=== PATIENT | male | born 1950 | race Caucasian/White ===

== ENCOUNTER 2020-05-11 09:37 | Outpatient (CLI) | payer MEDICARE, MEDICAID, SELFPAY ==
--- NOTE | ~2020-05-11 | XR_ITS ---
XR chest 2V 05/11/2020 11:02 Indication: Preop for prostate cancer surgery. Procedure: 2 view chest Comparison: No prior studies for comparison. Findings: There is a 5 cm mass in the left upper lobe, concerning for bronchogenic carcinoma. Further evaluation with CT recommended. Heart size normal. Right lung clear. Impression: 1: 5 cm left upper lobe mass, suspicious for bronchogenic carcinoma. Correlation with CT recommended. Reviewed, dictated and finalized at location B. Impression: 1: 5 cm left upper lobe mass, suspicious for bronchogenic carcinoma. Correlatio n with CT recommended.
--- NOTE | 2020-05-11 10:40 | ECG_ITS ---
Measurements Intervals [place] Rate: 72 P: 64 CA: 187 QRS: -6 QRSD: 109 T: 35 QT: 388 QTc: 427 Interpretive Statements SINUS RHYTHM INCOMPLETE RIGHT BUNDLE BRANCH BLOCK BORDERLINE R WAVE PROGRESSION, ANTERIOR LEADS BORDERLINE ECG Electronically Signed On 05-11-2020 13:28:09 CDT by Home Fuller D.O.
[2020-05-11 11:33] LABS: Basophils Absolute Auto 0.1 K/mm3 (0.0-0.1); Basophils Percent Auto 0.9 % (0.2-1.2); Eosinophils Absolute Auto 0.2 K/mm3 (0-0.3); Eosinophils Percent Auto 1.4 % (0-4.4); Hematocrit 48.6 % (42.0-52.0); Hemoglobin 16.4 g/dL (14.0-18.0); Immature Granulocyte Absolute 0.16 K/mm3 (0.00-0.031); Immature Granulocyte Percent A 1.4 % (0-0.5); Lymphocytes Absolute Auto 3.92 K/mm3 (0.9-3.2); Lymphocytes Percent Auto 34.2 % (18.3-44.2); Mean Corpuscular HGB Conc 33.7 g/dl (32-36); Mean Corpuscular Hemoglobin 32.4 pg (26-34); Mean Platelet Volume 9.3 fl (7.4-10.4); Monocytes Absolute Auto 0.9 K/mm3 (0.1-0.6); Monocytes Percent Auto 7.4 % (2.6-8.5); Neutrophils Absolute Auto 6.3 K/mm3 (1.3-6.7); Neutrophils Percent Auto 54.7 % (45.5-73.1); Platelet Count Result 394 k/mm3 (150-375); Red Blood Count 5.06 M/mm3 (4.6-6.20); Red Cell Distribution Width 15.9 % (11.5-14.5); White Blood Count 11.5 K/mm3 (4.5-10.0)
[2020-05-11 11:38] LABS: INR 0.9
[2020-05-11 11:39] LABS: Partial Thromboplastin Time 26.9 SECONDS (22.3-36.8)
[2020-05-11 11:44] LABS: Add Urine Microscopic? YES; Appearance Urine Clear (Clear); Bilirubin Urine Negative (Negative); Blood Urine Negative (Negative); Color Urine Yellow (Yellow); Glucose Urine UA Negative (Negative); Ketones Urine Negative (Negative); Leukocyte Esterase Ur Negative LEU/UL (Negative); Mucus Urine Rare /lpf; Nitrate Urine Negative (Negative); Protein Urine Negative (Negative); Specific Grav Ur 1.021 (1.001-1.035); Squamous Epithelial Cell Urine Rare /hpf (Few); Urobilinogen Urine Negative mg/dL (<2.0); WBC Urine 0-3 /hpf
[2020-05-11 11:51] LABS: Alanine Aminotransferase 28 U/L (4-50); Albumin Level 4.3 g/dL (3.5-5.1); Alkaline Phosphatase 89 U/L (38-126); Aspartate Amino Transferase 33 U/L (17-59); Bilirubin,Total 0.4 mg/dL (0.2-1.3); Blood Urea Nitrogen 15 mg/dL (9-20); Carbon Dioxide 24 mmol/L (22-30); Chloride 105 mmol/L (98-107); Estimated Glomerular Filt Rate > 60; Glucose 85 mg/dL (75-110); Potassium 4.2 mmol/L (3.4-5.0); Sodium 137 mmol/L (137-145)
== END 2020-05-11 09:38 | disposition home or self-care (01) ==
LOC: ANHSURGERY 09:46
PROVIDERS: PCP Internal Medicine; Visit Provider Urology
DX: C61 Malignant neoplasm of prostate (principal); I45.10 Unspecified right bundle-branch block
CPT/HCPCS: 36415; 71046; 80053; 81001; 85025; 85610; 85730; 86850; 86900; 86901; 93005

== ENCOUNTER 2020-05-26 12:15 | Outpatient (CLI) | payer MEDICARE, MEDICAID, SELFPAY ==
--- NOTE | ~2020-05-26 | PE_ITS ---
EXAMINATION: PET skull to mid thigh DATE: 05/26/2020 14:03 INDICATION: Lung mass TECHNIQUE: Blood glucose level was 104 mg/dL. 9.996 mCi of 18-fluorodeoxyglucose (18-FDG) was adminis tered i.v. Low dose computed tomography (CT) images were acquired from the base of the brain to the p roximal thighs for attenuation correction and anatomic localization. Positron emission tomography (PE T) images were acquired in the same distribution beginning 63 minutes after injection. The dose-lengt h product (DLP) was 717.27 mGy-cm. COMPARISON: None FINDINGS: Head/neck: FDG uptake in the oral cavity and vocal cords without suspicious CT correlate is likely ph ysiologic. No abnormal FDG uptake is identified. Chest: There is a 5.8 x 4.9 cm mass of the left lung apex with abnormal FDG uptake with an SUV max of 14.9. There is FDG uptake in the left hilum without definite hilar lymphadenopathy. There is no pleu ral effusion or pneumothorax. The heart size is normal. There is a small pericardial effusion. Abdomen/pelvis/proximal thighs: Physiologic FDG activity is present in the bowel and urinary tract. N o abnormal FDG uptake is identified. The gallbladder is surgically absent. The liver, spleen, pancrea s, and adrenal glands are normal. There is a 2.2 cm cyst of the left kidney lower pole. There is calc ified atherosclerosis of the aorta and many of the other arteries. No pathologically enlarged abdomin al or pelvic lymph nodes are identified. There are bilateral fat-containing inguinal hernias. The ruel endix is normal. Musculoskeletal: There is a focus of FDG uptake seen anteriorly between the C6 and C7 vertebral miracle s without a definite CT correlate. No suspicious uptake is identified. IMPRESSION: 1. Left upper lobe mass with abnormal FDG uptake, likely primary bronchogenic carcinoma. 2. FDG uptake in nonpathologically enlarged left hilar lymph nodes which could reflect metastatic dis ease. Reviewed, dictated and finalized at location B. IMPRESSION: 1. Left upper lobe mass with abnormal FDG uptake, likely primary bronchogenic c arcinoma. 2. FDG uptake in nonpathologically enlarged left hilar lymph nodes which could reflect metastatic disease.
[2020-05-26 12:33] LABS: Glucose Point of Care 104 (65-105)
== END 2020-05-26 12:16 | disposition home or self-care (01) ==
LOC: ANHIMG 12:18
PROVIDERS: PCP Internal Medicine; Visit Provider Internal Medicine
DX: R91.8 Other nonspecific abnormal finding of lung field (principal)
CPT/HCPCS: 78815; A9552

== ENCOUNTER 2020-06-22 00:48 | Outpatient (CLI) | payer MEDICARE, MEDICAID, SELFPAY ==
[2020-06-22 19:34] LABS: SARS-CoV-2 RNA PCR Negative
== END 2020-06-22 00:49 | disposition home or self-care (01) ==
LOC: ANHCOVIDDT 00:48
PROVIDERS: Radiology Diagnostic Radiology; PCP Internal Medicine; Visit Provider Internal Medicine Medical Oncology
DX: Z01.812 Encounter for preprocedural laboratory examination (principal); Z20.828 Contact with and (suspected) exposure to other viral communicable diseases
CPT/HCPCS: 87635; C9803; U0003

== ENCOUNTER 2020-06-24 08:57 | Outpatient (CLI) | payer MEDICARE, MEDICAID, SELFPAY ==
[2020-06-19 08:51] VITALS: BMI 27.1
[2020-06-24] VITALS (10 sets, daily range): BP systolic 131–156; BP diastolic 56–99; PULSE 57–97; RESP 16–21; O2SAT 95–100
--- NOTE | ~2020-06-24 | XR_ITS ---
EXAMINATION: XR chest 1V portable DATE: 06/24/2020 13:32 INDICATION: Status post percutaneous biopsy of a left upper lobe mass. TECHNIQUE: frontal view of the chest was obtained. COMPARISON: Chest radiograph dated 06/24/2020 at 11:01 AM and PET/CT dated 05/26/2020 FINDINGS: Lucency along the medial side of a left upper lobe mass which on prior PET study corresponds to a per ipheral bleb. Unchanged linear discoid atelectasis/scarring the bilateral lower lung zones. No pneumo thorax, pleural effusion or new airspace opacities. The cardiomediastinal silhouette is normal. IMPRESSION: 1. No pneumothorax or pleural effusion post percutaneous biopsy of a left upper lobe mass which is co ncerning for malignancy. Reviewed, dictated and finalized at location A. IMPRESSION: 1. No pneumothorax or pleural effusion post percutaneous biopsy of a left upper lobe mass which is concerning for malignancy.
--- NOTE | ~2020-06-24 | CT_ITS ---
EXAMINATION: CT biopsy lung DATE: 06/24/2020 12:17 INDICATION: Left lung mass. Prostate cancer. TECHNIQUE: The procedure including the risks and benefits was discussed with the patient. Risks discu ssed included infection, approximately 1/20 risk of symptomatic hemorrhage beyond mild hemoptysis, ap proximately 1/3 risk of pneumothorax, and approximately 1/10 risk of pneumothorax severe enough to wa rrant chest tube placement. The patient understood the risks and agreed to proceed. The patient was p laced supine. The skin overlying the clavicular anterior left chest was prepped and draped in steril e fashion. Anesthetic was administered with 1% lidocaine subcutaneously. A 19 gauge outer needle wa s advanced under CT guidance to the lesion of interest. A 20 gauge core biopsy needle was then used t o obtain 4 core biopsy specimens. The needle was removed and the entry site was cleaned and dressed. There were no immediate complications. The dose-length product was 117.25 mGy-cm. FINDINGS: CT images demonstrate the outer needle tip adjacent to 5 cm mass at the apical segment of t he left upper lobe. IMPRESSION: 1. Successful CT-guided biopsy of a 5.0 cm left apical mass. Reviewed, dictated and finalized at location A.
--- NOTE | ~2020-06-24 | XR_ITS ---
EXAMINATION: XR chest 1V DATE: 06/24/2020 12:22 INDICATION: Left lung mass post percutaneous biopsy TECHNIQUE: frontal view of the chest was obtained. COMPARISON: Chest radiograph dated 05/11/2020 FINDINGS: No pneumothorax or pleural effusion. Unchanged left upper lobe mass concerning for malignancy. Chroni c discoid atelectasis/scarring in the bilateral lower lobes. The cardiomediastinal silhouette is norm al. IMPRESSION: 1. No pneumothorax or other acute cardiopulmonary disease post percutaneous biopsy of a left upper lo be mass concerning for malignancy. Reviewed, dictated and finalized at location A. IMPRESSION: 1. No pneumothorax or other acute cardiopulmonary disease post percutaneous bio psy of a left upper lobe mass concerning for malignancy.
--- NOTE | ~2020-06-24 | XR_ITS ---
EXAMINATION: XR chest 1V portable DATE: 06/24/2020 15:32 INDICATION: Status post percutaneous biopsy of a left upper lobe mass TECHNIQUE: frontal view of the chest was obtained. COMPARISON: Chest radiograph dated 06/24/2020 at 1:26 PM FINDINGS: Left upper lobe mass. Atelectasis/scarring at the bilateral lower lung zones. No pneumothorax or pleu ral effusion. The cardiomediastinal silhouette is normal. IMPRESSION: 1. No pneumothorax or other acute cardiopulmonary disease post biopsy of a right upper lobe mass whic h is concerning for malignancy. Reviewed, dictated and finalized at location A. IMPRESSION: 1. No pneumothorax or other acute cardiopulmonary disease post biopsy of a righ t upper lobe mass which is concerning for malignancy.
[2020-06-24 10:43] LABS: Mean Platelet Volume 9.3 fl (7.4-10.4); Platelet Count Result 344 k/mm3 (150-375)
[2020-06-24 10:53] LABS: INR 0.9; Prothrombin Time 12.2 Seconds (11.1-14.7)
--- NOTE | 2020-06-24 13:45 | SUR.PHASEII ---
PORTABLE XRAY DONE AT 1315.
--- NOTE | 2020-06-24 15:24 | SUR.PHASEII ---
PORTABLE XRAY HERE FOR CXR.
--- NOTE | 2020-06-24 16:04 | SUR.PHASEII ---
1540 DR. VORA HERE TO SPEAK TO PATIENT. PIV REMOVED FROM LEFT FOREARM; SITE WNL. RIDE EN ROUTE. PT DRESSED, VOIDED X 1; TOLERATED JUICE.
== END 2020-06-24 16:23 | disposition home or self-care (01) ==
LOC: ANHIMG 08:58
PROVIDERS: Radiology Diagnostic Radiology; PCP Internal Medicine; Visit Provider Internal Medicine Medical Oncology
DX: R91.8 Other nonspecific abnormal finding of lung field (principal); C61 Malignant neoplasm of prostate; C34.91 Malignant neoplasm of unspecified part of right bronchus or lung
CPT/HCPCS: 32405; 36415; 71045; 77012; 81210; 81235; 81275; 81276; 85049; 85610; 88271; 88274; 88305; 88342; 88360; 88381

== ENCOUNTER 2020-06-25 12:38 | Outpatient (CLI) | payer MEDICARE, MEDICAID, SELFPAY ==
--- NOTE | 2020-07-01 16:54 | WPDPFTINT ---
PFT Interpretation PFT Interpretation: DOS: 06/25/2020 REQUESTING: Dr. Buzz Garcia REASON FOR TESTING: lung mass; history of asbestosis PULMONARY FUNCTION TESTS Results are not reliable as the patient could not sustain exhalation for 6 seconds on 3 attempts, says he had a lung biopsy the day prior to the test. Spirometry: FEV1 is 81%, normal, 2.55 L. FVC is 68%, mildly decreased. Slow vital capacity is 91%, higher than FVC indicating dynamic air trapping. The FEV1% calculated with slow vital capacity is decreased at 60%. No bronchodilator was given. Lung volumes: TLC 139% mild hyperinflation. RV 204%, severe air trapping. Airway resistance 136% mildly increased. Diffusion: DLCO is 75%, mildly decreased. Flow volume loop: Could only produce 2 flow volume loops. Early closure of the inspiratory limb. IMPRESSION: Results are not reliable due to patient factors including lung biopsy the day before the testing. Mild obstructive ventilatory impairment, mild hyperinflation, severe air trapping, mild diffusion impairment. No bronchodilator was given. This test result does not suggest asbestosis which would be expected to shows restriction and lower diffusion. Lola Jacob MD
== END 2020-06-25 12:39 | disposition home or self-care (01) ==
LOC: ANHPFT 12:40
PROVIDERS: PCP Internal Medicine; Visit Provider Internal Medicine Medical Oncology
DX: R91.8 Other nonspecific abnormal finding of lung field (principal)
CPT/HCPCS: 94375; 94726; 94729

== ENCOUNTER 2022-03-11 18:19 | Observation (INO) | payer MEDICARE, MEDICAID, SELFPAY ==
[2022-03-08 13:27] VITALS: BMI 27.1
--- NOTE | 2022-03-08 13:53 | PC.NURSE ---
Report to the Outpatient Waiting Room, entrance under the green pavilion located off [facility], at time _12:00PM on date __03/10/22 . OR Time: ___2:00PM . - You and your visitor will be asked a series of questions to screen for COVID 19 for your protection. - Only one visitor is allowed at this time. - The patient visitor is requested to leave or wait in car when not with patient. - A mask is required within the hospital. Patients may have clear liquids (water, carbonated beverages, clear teas, apple juice) until 3 hours prior to surgery with a maximum of 20 ounces. - No food from midnight until time of surgery - Infants may have breast milk until 4 hours before surgery, infant formula 6 hours prior to surgery. - Children will be allowed to drink immediately following surgery. If applicable, please bring a bottle or sippy cup to assist with drinking. Juice, water, soda, and popsicles are readily available. For infants on formula, please bring formula the day of surgery. Pacifiers are allowed. Take the following medications with a SIP of water the morning of surgery: _BUPROPION, LEVOTHYROXINE, LORAZEPAM AND HYDROCODONE NEEDED Medications to discontinue per physician ____HOLDING ASPIRIN STARTING TODAY 03/08/22 Date to take last dose Please no make-up, nail maori, hairspray, perfume, deodorant, or body powder the day of surgery. No jewelry (including any body piercings) or valuables the day of surgery, leave them at home. Please take a shower or bath the night before, or the morning of, surgery with an antibacterial soap. Wear comfortable, loose fitting clothing. Children are encouraged to wear pajamas. - Jewelry must be removed prior to entering the operating room. Rings and piercings that are not removed may be cut off. - The hospital will not accept responsibility for valuables. - Please leave all valuables, including medications, at home the day of surgery. If you are going home after surgery, a licensed class b driver must drive you home. - NO public transportation without another adult. - We recommend that an adult stay with you for 24 hours following discharge. - We also recommend that you do not drive, make important decision, drink alcoholic beverages, or take any drugs that were not prescribed by your health care provider for at least 24 hours after your discharge time. For Pediatric surgeries, we recommend two adults accompany the child home (only one inside the building at this time). Follow any additional instructions given to you from your surgeon. If you or anyone in your household have experienced Covid symptoms in the past week, please notify your surgeon or the nurse liaison at the phone number below for possible testing. Telephone instructions given to ___PATIENT and asked if any additional questions and then verbalized understanding. Patient advised to call surgeon office or pre surgery nurse liaison [phone] if any additional questions.
[2022-03-10] VITALS (17 sets, daily range): BP systolic 117–157; BP diastolic 49–83; PULSE 78–105; RESP 14–20; TEMP 36.2–37.1; O2SAT 92–100
--- NOTE | 2022-03-10 06:04 | ECG_ITS ---
Measurements Intervals [place] Rate: 92 P: 79 [place]: 180 QRS: 18 QRSD: 101 T: 56 QT: 368 QTc: 457 Interpretive Statements SINUS RHYTHM DELAYED PRECORDIAL R/S TRANSITION BASELINE WANDER- I, III, AVR, AVL, V2 BORDERLINE ECG Electronically Signed On 03-10-2022 12:40:49 CDT by Home Fuller D.O.
--- NOTE | 2022-03-10 06:39 | WPDHPUPDATE1 ---
History and Physical Update Update Date/Time: 03/10/22 06:39 History and Physical has been reviewed, including an updated exam of the patient. There are NO changes in the patient's condition. Risks, benefits, and alternatives have been discussed and questions answered. Patient agrees to proceed with procedure.
--- NOTE | 2022-03-10 12:08 | WPDANESEPPF ---
Anes - Initial Pre Proc Eval Procedure: Operation Date: 03/10/22 14:00 Proposed Procedures p Cystoscopy, Laser Lithotripsy of Large Bladder Calculus, Possible Open Bladder, - Richy Manjarrez MD s Possible Trans Urethral Resection Bladder Tumor - Richy Manjarrez MD Date/Time: 03/10/22 12:08 Surgeon: Richy Manjarrez MD Pre Op Diagnosis: prostate CA, bladder mass/calculus Patient Data Age: 71 Gender: M Height: 1.83 m Weight: 91 kg Allergies Allergy/AdvReac Type Severity Reaction Status Date / Time No Known Allergies Allergy Verified 03/08/22 13:22 Home Medications Medication Instructions Recorded Confirmed Type aspirin [Adult Low Dose Aspirin] 81 mg PO DAILY 05/11/20 03/08/22 History bupropion HCl 300 mg PO QAM 05/11/20 03/08/22 History doxepin 100 mg PO HS 05/11/20 03/08/22 History levothyroxine 25 mcg PO QAM 05/11/20 03/08/22 History lorazepam 1 mg PO BID PRN 05/11/20 03/08/22 History lovastatin 40 mg PO QPM 05/11/20 03/08/22 History melatonin 5 mg PO HS PRN 05/11/20 03/08/22 History meloxicam 15 mg PO DAILY 05/11/20 03/08/22 History olanzapine 20 mg PO QPM 05/11/20 03/08/22 History omeprazole 40 mg PO DAILY 05/11/20 03/08/22 History hydrocodone-acetaminophen 1 tablet PO Q3-4H PRN 03/08/22 03/08/22 History trazodone 50 mg PO HS 03/08/22 03/08/22 History Patient hx anesthesia problems: none Family hx anesthesia problems: none Results Review: All pre-operative results and documents have been reviewed as part of the pre-operative evaluation. [facility] Past Medical History Medical History Anxiety GERD (gastroesophageal reflux disease) Hx of migraines Hyperlipidemia Hypothyroid Lung cancer Prostate cancer Social History Social History Smoking packs per day: 1 Smoking cigarettes per day: 20.0 Years smoked: 50 Smoking pack-years: 50.00 Smoking status: Current every day smoker Tobacco type: cigars Additional smoking assessment comments: SMOKES 3-4 CIGAR/DAY Alcohol intake: former Alcohol use details: DRANK HEAVILY IN THE 1970'S Substance use: current Substance use type: marijuana Last use: DAILY X 50 YRS Living arrangements: alone Additional living arrangements comments: LIVES AT [facility] [employer] [employer] [phone] Spiritual care concerns: No Anes - Eval Final PreProcedure Day of Procedure 03/10/22 12:08 Patient weight: thin Heart: regular rate and rhythm Lungs: decreased breath sounds Airway: Mallampati scale class II Neurological: other (alert) Last oral intake: >/= 8 hours ASA classification: IV Emergent: no Anesthetic plan: proceed Anesthesia type and monitoring: general LMA and standard monitoring Results Review: All pre-operative results and documents have been reviewed as part of the pre-operative evaluation. Informed Consent: The patient's anesthetic plan and its attendant risks and benefits were discussed with the patient/family/POA. Questions were solicited and answers provided to the satisfaction of the patient/family/POA.
[2022-03-10] MEDS: LACTATED RINGERS 1,000 ML 30 ML IV CONT ×2 (12:15→15:33)
[2022-03-10] MEDS: ceFAZolin 2 GM/D5W 50 ML 2 GM/50 ML BAG IVPB (12:49)
[2022-03-10] MEDS: LIDOCAINE HCL 2% GEL UROJET 10 ML PKG MUCOUS MEM (13:04)
--- NOTE | 2022-03-10 15:52 | P.OP_ITS ---
Procedure Note - Detailed Date of Procedure 03/10/22 Pre-op Diagnosis Large bladder mass vs. neoplasm Post-op Diagnosis Other (Large, probable bladder neoplasm) Procedure Performed Cysto/clot evacuation, TURBT (large, >10cm) Surgeon Richy Manjarrez MD Anesthesia General Description of Procedure Patient is brought to the op suite was prepped draped in routine sterile fashion while in dorsal lithotomy position after the uneventful induction of a general anesthetic. Cystoscopy is undertaken with a 19 F rigid cystoscope followed by a 26 F continuous irrigation resectoscope. He has a massive growth in his bladder that is essentially filling the whole bladder lumen. in the office I could tell if this was a large calculus or a soft tissue neoplasm with some calcifications. On inspection in the OR today, it seems to cut with a loop electrode, consistent with a soft tissue neoplasm. With persistence I was able to resect this in its entirety. It appeared to arise in the right posterior lateral bladder wall. Somewhat surprisingly was able to identify and preserve each ureteral orifice. I sent tissue both from the main body of the mass as well as the base. We resected 244 g of tissue. The base was cauterized with the rollerball electrode a 24 F hematuria catheter was placed to continuous ir rigation. Blood loss was 75cc. Drains Yes Packing No Pathology Yes Complications No immediate complications Condition Stable Disposition PACU
[2022-03-10] MEDS: fentaNYL CITRATE INJ (*CRX) 100 MCG/2 ML VIAL 25 MCG IV PUSH ×4 (15:59→16:12)
[2022-03-10 16:41] LABS: Hemoglobin 14.1 g/dL (14.0-18.0)
[2022-03-10] MEDS: HYDROmorphone HCL INJ (*CRX) 1 MG/ML SYR 0.25 MG IV PUSH ×4 (16:52→17:10)
[2022-03-10 17:02] LABS: Anion Gap 5 mmol/L (8-16); Blood Urea Nitrogen 24 mg/dL (9-20); Calcium 8.5 mg/dL (8.4-10.2); Carbon Dioxide 27 mmol/L (22-30); Chloride 105 mmol/L (98-107); Estimated CRCL calculation 56 ml/min; Estimated Glomerular Filt Rate > 60; Glucose 145 mg/dL (65-110); Potassium 4.2 mmol/L (3.4-5.0); Sodium 137 mmol/L (137-145)
--- NOTE | 2022-03-10 17:25 | SUR.PHASEI ---
PATIENT EDUCATED ON PAIN CONTROL AND OPTIONS. RATING PAIN 10/10. RESTING, APPEARS COMFORTABLE, FLACC 0.
[2022-03-10] MEDS: DEXTROSE 5%/LACTATED RINGERS 1,000 ML 125 ML IV CONT (18:30)
[2022-03-10] MEDS: HYDROcodone/acetaminophen (*CRX) 5-325 MG TABLET 1 TAB PO (18:37)
[2022-03-10] MEDS: LORazepam (*CRX) 1 MG TABLET PO (18:38)
[2022-03-10] MEDS: DOCUSATE SODIUM 100 MG CAPSULE PO (18:55)
[2022-03-10] MEDS: LOVASTATIN 20 MG TABLET 40 MG PO (18:55)
[2022-03-10] MEDS: DOXEPIN HCL 25 MG CAPSULE 100 MG PO (20:07)
[2022-03-10] MEDS: OLANZapine 5 MG TABLET 20 MG PO (20:07)
[2022-03-10] MEDS: traZODone HCL 50 MG TABLET PO (20:07)
--- NOTE | ~2022-03-11 | XR_ITS ---
EXAMINATION: XR fluoroscopy no charge DATE: 03/10/2022 16:49 INDICATION: Bladder tumor. TECHNIQUE: 2 intraoperative fluoroscopic views of the abdomen and pelvis were obtained. I was not pre sent. Fluoroscopy time was 2 seconds. COMPARISON: None. FINDINGS: There are no dilated loops of bowel. There is a phlebolith in right pelvis. IMPRESSION: 1. No urolithiasis. Reviewed, dictated and finalized at location A. IMPRESSION: 1. No urolithiasis.
[2022-03-11] MEDS: HYDROcodone/acetaminophen (*CRX) 5-325 MG TABLET 1 TAB PO ×5 (00:21→18:08)
--- NOTE | 2022-03-11 00:35 | PC.NURSE ---
0030 PT SET OFF BED ALARM JUMPING OUT OF BED. ENTERED ROOM TO TURN OFF ALARM AND CHECK ON PT AND NOTICED HIS GOWN WAS WET. ASSESSED F[place] AND NOTICED PT HAD PULLED OUT TUBE CONNECTING TO THE CBI FLUIDS. STOPPED CBI FLUIDS AND REATTACHED TUBING. [address] WAY F[place] IS BACK FLOWING NORMALLY AND URINE IS PINK IN COLOR.
[2022-03-11] MEDS: DEXTROSE 5%/LACTATED RINGERS 1,000 ML 125 ML IV CONT (02:38)
[2022-03-11 03:12] VITALS: BP 111/55; PULSE 86; RESP 20; TEMP 37.1; O2SAT 99
[2022-03-11 05:30] LABS: Hematocrit 35.2 % (42.0-52.0); Hemoglobin 11.7 g/dL (14.0-18.0); Mean Corpuscular HGB Conc 33.2 g/dl (32-36); Mean Corpuscular Hemoglobin 32.2 pg (26-34); Mean Platelet Volume 9.4 fl (7.4-10.4); Platelet Count Result 324 k/mm3 (150-375); Red Blood Count 3.63 M/mm3 (4.6-6.20); Red Cell Distribution Width 13.8 % (11.5-14.5); White Blood Count 17.7 K/mm3 (4.5-10.0)
[2022-03-11] MEDS: LEVOTHYROXINE SODIUM 25 MCG TABLET PO (05:43)
[2022-03-11 05:52] LABS: Anion Gap 4 mmol/L (8-16); Blood Urea Nitrogen 17 mg/dL (9-20); Carbon Dioxide 27 mmol/L (22-30); Chloride 105 mmol/L (98-107); Estimated CRCL calculation 61 ml/min; Estimated Glomerular Filt Rate > 60; Glucose 126 mg/dL (65-110); Potassium 3.8 mmol/L (3.4-5.0); Sodium 136 mmol/L (137-145)
--- NOTE | 2022-03-11 07:01 | WPDUROPN2 ---
Progress Note: A&P Assessment and Plan (1) Cancer of overlapping sites of bladder: Code(s): C67.8 - Malignant neoplasm of overlapping sites of bladder Status: Acute Assessment and Plan: Tolerated large TURBT well. Urine clear on slow CBI. Will stop CBI today. Anticipate discharge later today were tomorrow with indwelling catheter over the weekend. Subjective Subjective Date/Time Seen: 03/11/22 07:01 Comfortable, no complaints Review of Systems Cardiovascular: Cardiovascular: Denies chest pain, Denies lightheadedness, Denies palpitations and Denies dyspnea Respiratory: Respiratory: Denies dyspnea Gastrointestinal: Gastrointestinal: Denies diarrhea, Denies nausea and Denies vomiting Genitourinary: Genitourinary: Denies hematuria and Denies dysuria Endocrine: Endocrine: Denies palpitations Exam Const: General: no acute distress Resp: Effort & Inspection: normal respiratory effort GI: Inspection: non-distended GI Palp: No abdominal tenderness and No Guarding due to palpation present (GI) Auscultation: normal bowel sounds Objective Data Vital Signs Vital Signs: Vital Signs - 24 hr 03/10/22 12:15 03/10/22 15:33 03/10/22 15:45 Temperature 97.4 F L 97.3 F L Pulse Rate 105 H 87 80 Respiratory Rate 18 14 20 Blood Pressure 117/73 155/82 H 144/71 H Pulse Oximetry 97 97 97 03/10/22 16:00 03/10/22 16:15 03/10/22 16:30 Temperature Pulse Rate 80 81 88 Respiratory Rate 18 18 18 Blood Pressure 131/67 131/67 136/56 L Pulse Oximetry 100 98 93 03/10/22 16:45 03/10/22 17:00 03/10/22 17:15 Temperature Pulse Rate 90 93 92 Respiratory Rate 18 20 20 Blood Pressure 157/60 H 128/49 L 144/70 H Pulse Oximetry 95 92 93 03/10/22 17:25 03/10/22 17:30 03/10/22 17:45 Temperature 98.7 F 98.7 F Pulse Rate 92 87 86 Respiratory Rate 20 20 20 Blood Pressure 138/75 136/83 139/73 Pulse Oximetry 97 100 100 03/10/22 17:50 03/10/22 18:15 03/10/22 20:47 Temperature 98.6 F Pulse Rate 84 84 Respiratory Rate 20 20 Blood Pressure 138/70 Pulse Oximetry 99 100 100 03/10/22 21:54 03/10/22 23:12 Temperature 97.2 F L Pulse Rate 84 78 Respiratory Rate 20 20 Blood Pressure 121/54 L Pulse Oximetry 100 99 Intake/Output Intake/Output: Intake & Output 03/08/22 03/09/22 03/10/22 03/11/22 23:59 23:59 23:59 23:59 Intake Total 675 1000 Output Total 3900 2500 Balance -3225 -1500 Meds/Results Medications: Active Medications Generic Name Dose Route Start Last Admin Trade Name Freq PRN Reason Stop Dose Admin Hydrocodone Bitart/Acetaminophen 1 tab 03/10/22 17:27 03/11/22 06:02 Hydrocodone/Acetaminophen (*Crx) 5-325 Mg Tablet PO 1 tab Q4H PRN Administration Pain Rated 1-6 Bupropion HCl 300 mg 03/11/22 09:00 Bupropion Hcl Xl (24 Hr) 150 Mg Tabcr PO QAM DEANA Cephalexin HCl 500 mg 03/11/22 09:00 Cephalexin 500 Mg Capsule PO QID DEANA Docusate Sodium 100 mg 03/10/22 17:27 03/10/22 18:55 Docusate Sodium 100 Mg Capsule PO 100 mg BID DEANA Administration Doxepin HCl 100 mg 03/10/22 21:00 03/10/22 20:07 Doxepin Hcl 25 Mg Capsule PO 04/09/22 20:59 100 mg HS DEANA Administration Hyoscyamine 0.125 mg 03/10/22 17:27 Hyoscyamine Sulfate 0.125 Mg Tablet SUBLINGUAL Q6H PRN Bladder Spasm Dextrose/Lactated Ringer's 1,000 mls @ 125 mls/hr 03/10/22 17:27 03/11/22 02:38 Dextrose 5%/Lactated Ringers IV CONT 125 mls/hr .Q8H DEANA Administration Levothyroxine Sodium 25 mcg 03/11/22 06:30 03/11/22 05:43 Levothyroxine Sodium 25 Mcg Tablet PO 25 mcg DAILY@0630 DEANA Administration Lorazepam 1 mg 03/10/22 17:27 03/10/22 18:38 Lorazepam (*Crx) 1 Mg Tablet PO 1 mg BID PRN Administration Anxiety Lovastatin 40 mg 03/10/22 18:00 03/10/22 18:55 Lovastatin 20 Mg Tablet PO 40 mg QPM DEANA Administration Melatonin 5 mg 03/10/22 17:27 Melatonin 5 Mg Tablet PO HS PRN
[2022-03-11 07:12] VITALS: BP 118/52; PULSE 85; RESP 21; TEMP 36.1; O2SAT 100
[2022-03-11] MEDS: MORPHINE SULFATE (*CRX) 2 MG/ML INJ IV PUSH ×4 (07:39→20:01)
[2022-03-11] MEDS: buPROPion HCL XL (24 HR) 150 MG TABCR 300 MG PO (08:21)
[2022-03-11] MEDS: PANTOPRAZOLE 40 MG TABLET PO ×2 (08:21→20:00)
[2022-03-11] MEDS: CEPHALEXIN 500 MG CAPSULE PO ×4 (08:21→19:59)
[2022-03-11] MEDS: DOCUSATE SODIUM 100 MG CAPSULE PO ×2 (08:21→16:06)
--- NOTE | 2022-03-11 09:25 | WPDANESPN ---
Anes - Prog Note Post-Op Date/Time: 03/11/22 09:25 Cardiovascular status: normal Respiratory status: normal Airway patency: baseline Mental status: baseline Post-Op hydration status: normal Vital Signs: Last Vital Signs Temp 36.1 C L 03/11/22 07:12 Pulse 85 03/11/22 07:12 Resp 21 H 03/11/22 07:12 BP 118/52 L 03/11/22 07:12 Pulse Ox 100 03/11/22 07:12 Pain Score (VAS): 0 I/O: Intake & Output 03/10/22 03/11/22 03/11/22 23:59 07:59 15:59 Intake Total 625 1000 110 Output Total 3900 2500 Balance -3275 -1500 110 Laboratory Tests 03/11/22 04:59 03/11/22 04:59 03/10/22 03/10/22 03/11/22 16:31 16:31 04:59 WBC 17.7 H RBC 3.63 L Hgb 14.1 11.7 L Hct 43.0 35.2 L MCV 97.0 MCH 32.2 MCHC 33.2 RDW 13.8 Plt Count 324 MPV 9.4 Sodium 137 Potassium 4.2 Chloride 105 Carbon Dioxide 27 Anion Gap 5 L BUN 24 H Creatinine 1.10 Estim Creat Clear Calc 56 Estimated GFR > 60 Glucose 145 H Calcium 8.5 03/11/22 04:59 WBC RBC Hgb Hct MCV MCH MCHC RDW Plt Count MPV Sodium 136 L Potassium 3.8 Chloride 105 Carbon Dioxide 27 Anion Gap 4 L BUN 17 Creatinine 1.00 Estim Creat Clear Calc 61 Estimated GFR > 60 Glucose 126 H Calcium 8.0 L Post-procedural complaints: none Patient Feedback: Patient satisfied with anesthetic care.
[2022-03-11 09:45] VITALS: BMI 21.2
[2022-03-11 10:10] VITALS: BP 106/59; PULSE 85; RESP 18; TEMP 37.1; O2SAT 98
[2022-03-11 15:05] VITALS: BP 100/50; PULSE 83; RESP 18; TEMP 37.2; O2SAT 97
[2022-03-11] MEDS: LOVASTATIN 20 MG TABLET 40 MG PO (18:09)
[2022-03-11] MEDS: OLANZapine 5 MG TABLET 20 MG PO (18:10)
[2022-03-11 18:20] VITALS: BP 96/48; PULSE 88; RESP 14; TEMP 36.4; O2SAT 93
[2022-03-11] MEDS: DOXEPIN HCL 25 MG CAPSULE 100 MG PO (19:59)
[2022-03-11 20:00] VITALS: BP 97/58; PULSE 79; RESP 18; TEMP 36.2; O2SAT 96
[2022-03-11] MEDS: LORazepam (*CRX) 1 MG TABLET PO (20:00)
[2022-03-11] MEDS: MELATONIN 5 MG TABLET PO (20:01)
[2022-03-11] MEDS: traZODone HCL 50 MG TABLET PO (20:01)
[2022-03-12] VITALS: BP 103/74; PULSE 91; RESP 18; TEMP 36.2; O2SAT 96
[2022-03-12] MEDS: MORPHINE SULFATE (*CRX) 2 MG/ML INJ IV PUSH ×2 (01:56→04:14)
[2022-03-12] MEDS: HYDROcodone/acetaminophen (*CRX) 5-325 MG TABLET 1 TAB PO ×3 (02:57→12:03)
--- NOTE | 2022-03-12 03:02 | PC.NURSE ---
Pt is being verbally abusive keeps reattempting to get another IV shot. Nurse told him she give him a pill. Stated to bring the fucking pill. Ask male nurse to assist me. Attempted to get male nurse to give him a shot. Reminded him he already had shot. Started arguing that you gave me a shot I thought it was supposed to go in the vein. This is after multiple times pt repeatedly asked different nurse to give him pain shots. It had been an hour since pt received his shot.
--- NOTE | 2022-03-12 04:10 | PC.NURSE ---
Called to room pt asking for pain shot
[2022-03-12 06:00] VITALS: BP 105/58; PULSE 77; RESP 20; TEMP 37.2; O2SAT 96
[2022-03-12 06:45] LABS: Hematocrit 33.3 % (42.0-52.0); Hemoglobin 11.1 g/dL (14.0-18.0); Mean Corpuscular HGB Conc 33.3 g/dl (32-36); Mean Corpuscular Hemoglobin 32.1 pg (26-34); Mean Corpuscular Volume 96.2 fl (80-100); Mean Platelet Volume 9.3 fl (7.4-10.4); Platelet Count Result 328 k/mm3 (150-375); Red Blood Count 3.46 M/mm3 (4.6-6.20)
[2022-03-12] MEDS: LEVOTHYROXINE SODIUM 25 MCG TABLET PO (06:48)
[2022-03-12 07:04] LABS: Anion Gap 4 mmol/L (8-16); Blood Urea Nitrogen 13 mg/dL (9-20); Calcium 8.2 mg/dL (8.4-10.2); Carbon Dioxide 28 mmol/L (22-30); Chloride 105 mmol/L (98-107); Estimated CRCL calculation 75 ml/min; Estimated Glomerular Filt Rate > 60; Glucose 102 mg/dL (65-110); Potassium 3.4 mmol/L (3.4-5.0); Sodium 137 mmol/L (137-145)
[2022-03-12] MEDS: PANTOPRAZOLE 40 MG TABLET PO (09:34)
[2022-03-12] MEDS: buPROPion HCL XL (24 HR) 150 MG TABCR 300 MG PO (09:34)
[2022-03-12] MEDS: DOCUSATE SODIUM 100 MG CAPSULE PO (09:34)
[2022-03-12] MEDS: CEPHALEXIN 500 MG CAPSULE PO ×2 (09:34→12:08)
[2022-03-12 10:26] VITALS: BP 119/61; PULSE 82; RESP 20; TEMP 36.3; O2SAT 94
[2022-03-12 14:20] VITALS: BP 105/57; PULSE 70; RESP 16; TEMP 36; O2SAT 97
--- NOTE | 2022-03-12 14:25 | WPDUROPN2 ---
Progress Note: A&P Assessment and Plan (1) Cancer of overlapping sites of bladder: Code(s): C67.8 - Malignant neoplasm of overlapping sites of bladder Status: Acute Assessment and Plan: Status post transurethral resection of bladder tumor (2) Retention of urine, unspecified: Code(s): R33.9 - Retention of urine, unspecified Status: Acute Assessment and Plan: Home with Pratt catheter. Flomax sent to pharmacy Subjective Subjective Date/Time Seen: 03/12/22 14:25 He subjectively states he has discomfort, but he appears comfortable to me. He is unable to empty his bladder.. He has voided a small amount of blood-tinged urine. There is 500 cc in his bladder on bladder scan. Exam Narrative: Poor dentition Appears comfortable Abdomen soft. No rebound or guarding Objective Data Vital Signs Vital Signs: Vital Signs - 24 hr 03/11/22 15:05 03/11/22 18:20 03/11/22 20:00 Temperature 99 F 97.6 F 97.1 F L Pulse Rate 83 88 79 Respiratory Rate 18 14 18 Blood Pressure 100/50 L 96/48 L 97/58 L Pulse Oximetry 97 93 96 03/12/22 00:00 03/12/22 06:00 03/12/22 10:26 Temperature 97.2 F L 98.9 F 97.4 F L Pulse Rate 91 77 82 Respiratory Rate 18 20 20 Blood Pressure 103/74 105/58 L 119/61 Pulse Oximetry 96 96 94 Intake/Output Intake/Output: Intake & Output 03/09/22 03/10/22 03/11/22 03/12/22 23:59 23:59 23:59 23:59 Intake Total 675 1957 120 Output Total 3900 [id number] 1600 [facility] [phone] Meds/Results Medications: Active Medications Generic Name Dose Route Start Last Admin Trade Name Freq PRN Reason Stop Dose Admin Hydrocodone Bitart/Acetaminophen 1 tab 03/10/22 17:27 03/12/22 09:36 Hydrocodone/Acetaminophen (*Crx) 5-325 Mg Tablet PO 1 tab Q4H PRN Administration Pain Rated 1-6 Hydrocodone Bitart/Acetaminophen 2 tab 03/12/22 11:43 Hydrocodone/Acetaminophen (*Crx) 5-325 Mg Tablet PO Q4H PRN Pain Rated 7-10 Bupropion HCl 300 mg 05/13/22 09:00 03/12/22 09:34 Bupropion Hcl Xl (24 Hr) 150 Mg Tabcr PO 300 mg QAM DEANA Administration Cephalexin HCl 500 mg 03/11/22 09:00 03/12/22 12:08 Cephalexin 500 Mg Capsule PO 500 mg QID DEANA Administration Docusate Sodium 100 mg 03/10/22 17:27 03/12/22 09:34 Docusate Sodium 100 Mg Capsule PO 100 mg BID DEANA Administration Doxepin HCl 100 mg 03/10/22 21:00 03/11/22 19:59 Doxepin Hcl 25 Mg Capsule PO 04/09/22 20:59 100 mg HS DEANA Administration Hyoscyamine 0.125 mg 03/10/22 17:27 Hyoscyamine Sulfate 0.125 Mg Tablet SUBLINGUAL Q6H PRN Bladder Spasm Levothyroxine Sodium 25 mcg 03/11/22 06:30 03/12/22 06:48 Levothyroxine Sodium 25 Mcg Tablet PO 25 mcg DAILY@0630 DEANA Administration Lorazepam 1 mg 03/10/22 17:27 03/11/22 20:00 Lorazepam (*Crx) 1 Mg Tablet PO 1 mg BID PRN Administration Anxiety Lovastatin 40 mg 03/10/22 18:00 03/11/22 18:09 Lovastatin 20 Mg Tablet PO 40 mg QPM DEANA Administration Melatonin 5 mg 03/10/22 17:27 03/11/22 20:01 Melatonin 5 Mg Tablet PO 5 mg HS PRN Administration Insomnia Naloxone HCl 0.1 mg 03/10/22 17:27 Naloxone Hcl 0.4 Mg/Ml Vial IV PUSH Q2M PRN Opiate Reversal Olanzapine 20 mg 03/10/22 18:00 03/11/22 18:10 Olanzapine 5 Mg Tablet PO 20 mg QPM DEANA Administration Ondansetron HCl 4 mg 03/10/22 17:27 Ondansetron Inj 4 Mg/2 Ml Vial IV PUSH Q12H PRN Nausea And Vomiting Pantoprazole Sodium 40 mg 03/11/22 09:00 03/12/22 09:34 Pantoprazole 40 Mg Tablet PO 40 mg Q12HR DEANA Administration Trazodone HCl 50 mg 03/10/22 21:00 03/11/22 20:01 Trazodone Hcl 50 Mg Tablet PO 50 mg HS DEANA Administration Radiology Results: ITS Impressions Fluoroscopy 03/10/22 16:52 IMPRESSION: 1. No urolithiasis. Labs Labs: Laboratory Results - last 24 hr 03/12/22 03/12/22 06:01 06:01 WBC 15.0 H RBC 3
--- NOTE | 2022-03-15 14:31 | PM.DS ---
DS: Admitting Diagnosis Discharge Date 03/12/22 Admitting Diagnosis Bladder neoplasm DS: Summary Hospital Course Hospital Course: patient is well known to me with a history of both lung cancer and prostate cancer. During the course of evaluation an outside hospital CT scan demonstrated a large mass in his bladder. Cystoscopy in the office confirmed a large mass of uncertain etiology. The patient was admitted underwent exhaustive resection of a very large bladder neoplasm. Indwelling catheter was left postoperatively. The day following the procedure he was ambulating and tolerating a regular diet. There was some difficulty with transportation which prompted an additional [facility] admission. Thereafter he was feeling well. We attempted a voiding trial but he failed. The catheter was replaced he was discharged with plans to follow-up for catheter removal later the next week. Time Spent with Patient Time attestation: Total time spent providing and/or coordinating discharge services: 15min Exam Const: General: no acute distress Resp: Effort & Inspection: normal respiratory effort GI: Inspection: non-distended GI Palp: No abdominal tenderness and No Guarding due to palpation present (GI) Auscultation: normal bowel sounds DS: Data Data Completed and Pending Pending studies at discharge: Pending at discharge 03/10/22 14:54 Surgical [PTH] Routine Surgical [PTH] Routine Discharge Plan Discharge Attending physician on discharge: Richy Manjarrez Consulting providers: Home Fuller ; Aidan Forbes V. ; Duane Mijares Discharging Clinician: Duane Mijares Patient Disposition: Home, Self-Care Activity: other - see discharge instructions Diet: as tolerated Discharge Instructions: 1) Discharge Monday 03/12 morning if voiding well after catheter removal 2) Notify Dr. Mijares if unable to discharge. 3) Activity: No lifting/straining >15 lbs. [id number]. 2) Diet: Resume normal pre-admission diet. 3) Follow-up: 2-weeks (call for appt. [phone]) Patient Instructions: How to Stop Smoking (GEN) Follow-up/Referrals: Richy Manjarrez MD [Physician] - Other (by the end of this week 03/18/22) Discharge Medications: New hydrocodone-acetaminophen 5-325 mg tablet 1 - 2 tablet PO Q6H PRN (Reason: pain) Qty: 20 RF: 0 cephalexin 500 mg capsule 500 mg PO Q8H Qty: 9 RF: 0 tamsulosin 0.4 mg capsule 0.4 mg PO DAILY Qty: 30 RF: 0 tamsulosin 0.4 mg capsule 0.4 mg PO DAILY Qty: 20 RF: 0 Continued meloxicam 15 mg Tablet 15 mg PO DAILY RF: 0 lovastatin 40 mg Tablet 40 mg PO QPM RF: 0 omeprazole 40 mg Capsule,Delayed Release(Dr/Ec) 40 mg PO DAILY RF: 0 levothyroxine 25 mcg Tablet 25 mcg PO QAM RF: 0 doxepin 100 mg Capsule 100 mg PO HS RF: 0 lorazepam 1 mg Tablet 1 mg PO BID PRN (Reason: Anxiety) RF: 0 olanzapine 20 mg Tablet 20 mg PO QPM RF: 0 bupropion HCl 300 mg Tablet Extended Release 24 Hr 300 mg PO QAM RF: 0 melatonin 5 mg Tablet 5 mg PO HS PRN (Reason: Insomnia) RF: 0 hydrocodone-acetaminophen 5-325 mg tablet 1 tablet PO Q3-4H PRN (Reason: Pain) RF: 0 trazodone 50 mg tablet 50 mg PO HS RF: 0 Held aspirin [Adult Low Dose Aspirin] 81 mg Tablet,Delayed Release (Dr/Ec) 81 mg PO DAILY RF: 0 Hold Instructions: Resume on 03/16/22. Date of admission: 03/11/22 18:19 Primary Care Provider: [place],Yolande Starr Admitting Provider: Richy Manjarrez Attending physician on admission: Richy Manjarrez Condition: Stable
== END 2022-03-12 15:00 | disposition home or self-care (01) ==
LOC: ANHSURGERY 18:23 → ANH2MED 18:23
PROVIDERS: Admitting Provider Urology; PCP Internal Medicine; Visit Provider Urology
PROC: (CPT 52352; principal; 2022-03-10 14:00)
PROC: 0TBB8ZZ Excision of Bladder, Via Natural or Artificial Opening Endoscopic (ICD-10-PCS; CPT 52240; 2022-03-10 14:00)
DX: C67.8 Malignant neoplasm of overlapping sites of bladder (principal); C34.90 Malignant neoplasm of unspecified part of unspecified bronchus or lung; C61 Malignant neoplasm of prostate; R33.9 Retention of urine, unspecified; J44.9 Chronic obstructive pulmonary disease, unspecified; K21.9 Gastro-esophageal reflux disease without esophagitis; E78.5 Hyperlipidemia, unspecified; E03.9 Hypothyroidism, unspecified; F41.9 Anxiety disorder, unspecified; F32.A Depression, unspecified; F17.210 Nicotine dependence, cigarettes, uncomplicated
CPT/HCPCS: 52240; 36415; 80048; 85014; 85018; 85027; 88305; 88342; 93005; A9270; C1758; G0378; J0690; J1100; J1170; J2270; J2405; J2704; J3010; J7120; J7121